=== PATIENT | female | born 1985 | race Caucasian/White ===

== ENCOUNTER 2016-09-12 14:34 | Emergency (ER) | payer MEDICAID ==
[~2016-09-12] VITALS: Ht 165.1 cm; Wt 77.2 kg
[2016-09-12 15:03] LABS: DAU SCREEN DISCLAIMER
[2016-09-12 15:13] LABS: HCG UR OBC PASS
[2016-09-12 15:21] LABS: ASPARTATE AMINO TRANSFERASE 35 U/L (15-37); BLOOD UREA NITROGEN 12 mg/dL (7-18)
[2016-09-12 15:27] LABS: ACETAMINOPHEN < 2 mcg/mL (10-30)
[2016-09-12 17:22] VITALS: BP 91/59
== END 2016-09-12 19:46 | disposition home or self-care (01) ==
LOC: ED 19:40
DX: F32.9 Major depressive disorder, single episode, unspecified (principal); F15.10 Other stimulant abuse, uncomplicated
CPT/HCPCS: 36415; 80053; 80307; 80329; 81001; 81025; 85025; 87086; 99284; G0480

== ENCOUNTER 2016-09-29 21:36 | Emergency (ER) | payer MEDICAID ==
[~2016-09-29] VITALS: Ht 167.6 cm; Wt 80.0 kg
[2016-09-29 21:37] VITALS: BP 131/82
[2016-09-29] MEDS ORDERED: IBUPROFEN 200 MG TABLET ONE (22:08)
[2016-09-29] MEDS ORDERED: IBUPROFEN 200 MG TABLET PO ONE (22:30)
== END 2016-09-29 22:52 | disposition home or self-care (01) ==
LOC: ED 22:38
DX: S60.222A Contusion of left hand, initial encounter (principal); R51 Headache; Y04.8XXA Assault by other bodily force, initial encounter; Y93.89 Activity, other specified; Y99.8 Other external cause status; Y92.009 Unspecified place in unspecified non-institutional (private) residence as the place of occurrence of the external cause
CPT/HCPCS: 70450; 99284

== ENCOUNTER 2016-12-10 23:49 | Emergency (ER) | payer MEDICAID ==
[~2016-12-10] VITALS: Ht 167.6 cm; Wt 79.7 kg
[2016-12-10 23:56] VITALS: BP 124/84
[2016-12-11] MEDS ORDERED: LIDOCAINE 1%, 20ML SQ ONE (01:00)
[2016-12-11] MEDS ORDERED: LIDOCAINE 1%, 20ML ONE (01:11)
== END 2016-12-11 01:39 | disposition home or self-care (01) ==
LOC: ED 23:59
DX: L02.11 Cutaneous abscess of neck (principal); F19.10 Other psychoactive substance abuse, uncomplicated
CPT/HCPCS: 10060; 99283

== ENCOUNTER 2017-01-04 07:38 | Emergency (ER) | payer MEDICAID ==
[~2017-01-04] VITALS: Ht 167.6 cm; Wt 77.6 kg
[2017-01-04 07:40] VITALS: BP 103/69
[2017-01-04] MEDS ORDERED: ONDANSETRON ODT 4 MG PO ONE (08:30)
[2017-01-04] MEDS ORDERED: OXYcodone/APAP 5/325MG TABLET PO ONE (08:30)
[2017-01-04] MEDS ORDERED: ONDANSETRON ODT 4 MG ONE (08:39)
[2017-01-04] MEDS ORDERED: OXYcodone/APAP 5/325MG TABLET ONE (08:39)
== END 2017-01-04 09:59 | disposition left against medical advice (07) ==
LOC: ED 08:49
DX: S40.021A Contusion of right upper arm, initial encounter (principal); S50.11XA Contusion of right forearm, initial encounter; S70.11XA Contusion of right thigh, initial encounter; S80.11XA Contusion of right lower leg, initial encounter; S40.022A Contusion of left upper arm, initial encounter; S50.12XA Contusion of left forearm, initial encounter; S70.12XA Contusion of left thigh, initial encounter; S80.02XA Contusion of left knee, initial encounter; S09.90XA Unspecified injury of head, initial encounter; F43.10 Post-traumatic stress disorder, unspecified; V49.9XXA Car occupant (driver) (passenger) injured in unspecified traffic accident, initial encounter; Y93.89 Activity, other specified; Y92.89 Other specified places as the place of occurrence of the external cause; Y99.8 Other external cause status
CPT/HCPCS: 70450; 72125; 74176; 99284; Q0162

== ENCOUNTER 2017-04-02 02:34 | Emergency (ER) | payer MEDICAID ==
[~2017-04-02] VITALS: Ht 165.1 cm; Wt 83.3 kg
[2017-04-02] MEDS ORDERED: CEPH-368 PO (02:46)
[2017-04-02] MEDS ORDERED: SULF1TAB24 PO (02:46)
[2017-04-02] MEDS ORDERED: SODIUM CHLORIDE FLUSH 10ML SYR IVF ONE (03:00)
[2017-04-02] MEDS ORDERED: LIDOCAINE 1%, 20ML SQ ONE (03:00)
[2017-04-02] MEDS ORDERED: SODIUM CHLORIDE 0.9% 1,000ML IVBOLUS ONE (03:00)
[2017-04-02 03:15] LABS: HEMATOCRIT 43.6 % (34.6-47.8); HEMOGLOBIN 14.6 g/dL (11.7-16.4); WHITE BLOOD COUNT 12.6 x10^3/uL (3.4-10)
[2017-04-02] MEDS: CLINDAMYCIN PMX 900MG/50ML 50 ML IVPB ONE ×2 (03:15→03:30)
[2017-04-02 03:24] LABS: BLOOD UREA NITROGEN 12 mg/dL (7-18)
[2017-04-02] MEDS ORDERED: CLINDAMYCIN PMX 900MG/50ML 50 ML ONE (03:25)
[2017-04-02] MEDS ORDERED: LIDOCAINE 1%, 20ML ONE (03:29)
[2017-04-02] MEDS ORDERED: OMNIPAQUE 350 MG/ML, 100ML BOTTLE ONE (04:19)
[2017-04-02 04:46] VITALS: BP 122/79
== END 2017-04-02 05:38 | disposition home or self-care (01) ==
LOC: ED 02:48
DX: L02.414 Cutaneous abscess of left upper limb (principal); L03.114 Cellulitis of left upper limb; F15.10 Other stimulant abuse, uncomplicated
CPT/HCPCS: 10060; 36415; 73201; 80048; 82040; 83605; 85025; 87040; 96365; 99285; J7030; Q9967

== ENCOUNTER 2017-04-06 01:31 | Emergency (ER) | payer MEDICAID ==
[~2017-04-06] VITALS: Ht 170.2 cm; Wt 84.7 kg
[~2017-04-06 01:31] MED LIST: CEPH-368 PO; SULF1TAB24 PO
[2017-04-06 01:35] VITALS: BP 126/84
== END 2017-04-06 02:10 | disposition home or self-care (01) ==
LOC: ED 02:01
DX: L02.414 Cutaneous abscess of left upper limb (principal); F43.10 Post-traumatic stress disorder, unspecified
CPT/HCPCS: 99283

== ENCOUNTER 2017-04-24 14:03 | Emergency (ER) | payer MEDICAID ==
[~2017-04-24] VITALS: Ht 170.2 cm; Wt 84.2 kg
[2017-04-24 14:13] VITALS: BP 130/84
[2017-04-24] MEDS ORDERED: IBUPROFEN 200 MG TABLET PO ONE (14:30)
[2017-04-24] MEDS ORDERED: IBUPROFEN 200 MG TABLET ONE (14:33)
== END 2017-04-24 15:04 | disposition home or self-care (01) ==
LOC: ED 14:26
DX: L03.012 Cellulitis of left finger (principal)
CPT/HCPCS: 99283

== ENCOUNTER 2018-01-25 14:55 | Emergency (ER) | payer MEDICAID ==
[~2018-01-25] VITALS: Ht 167.6 cm; Wt 75.0 kg
[2018-01-25 15:18] VITALS: BP 118/67
== END 2018-01-25 15:24 | disposition home or self-care (01) ==
LOC: ED 15:18
DX: B35.3 Tinea pedis (principal); F43.10 Post-traumatic stress disorder, unspecified; Z59.0 Homelessness
CPT/HCPCS: 99282

== ENCOUNTER 2018-01-31 13:17 | Emergency (ER) | payer MEDICAID ==
[~2018-01-31] VITALS: Ht 165.1 cm; Wt 83.9 kg
[2018-01-31 13:21] VITALS: BP 121/77
[2018-01-31] MEDS ORDERED: DIPH,PERTUSS(ACELL),TET VAC/PF 0.5 ML IM-VACC ONE (14:00)
== END 2018-01-31 13:42 | disposition home or self-care (01) ==
LOC: ED 13:36
DX: L03.113 Cellulitis of right upper limb (principal); F17.200 Nicotine dependence, unspecified, uncomplicated; Z59.0 Homelessness
CPT/HCPCS: 99283

== ENCOUNTER 2018-07-03 03:42 | Emergency (ER) | payer MEDICAID ==
[~2018-07-03] VITALS: Ht 167.6 cm; Wt 85.0 kg
[2018-07-03 04:03] VITALS: BP 149/84
== END 2018-07-03 04:05 | disposition home or self-care (01) ==
LOC: ED 04:00
DX: L03.115 Cellulitis of right lower limb (principal); L03.317 Cellulitis of buttock; F32.9 Major depressive disorder, single episode, unspecified; F43.10 Post-traumatic stress disorder, unspecified
CPT/HCPCS: 99283

== ENCOUNTER 2019-09-02 01:40 | Emergency (ER) | payer MEDICAID ==
[~2019-09-02] VITALS: Ht 167.6 cm; Wt 88.4 kg
[2019-09-02 01:42] VITALS: BP 140/83
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
--- NOTE | 2019-09-02 03:00 | NUR ---
[employer] AT PT'S BEDSIDE
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
== END 2019-09-02 04:49 | disposition home or self-care (01) ==
LOC: ED 02:41
DX: T76.21XA Adult sexual abuse, suspected, initial encounter (principal); K64.4 Residual hemorrhoidal skin tags; M54.2 Cervicalgia; F15.10 Other stimulant abuse, uncomplicated; F17.210 Nicotine dependence, cigarettes, uncomplicated
CPT/HCPCS: 99282

== ENCOUNTER 2019-10-06 01:18 | Emergency (ER) | payer MEDICAID ==
[~2019-10-06] VITALS: Ht 167.6 cm; Wt 90.0 kg
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
[2019-10-06] MEDS ORDERED: MORPHINE SULFATE 4 MG/ML, 1ML ONE (01:56)
[2019-10-06] MEDS ORDERED: CLINDAMYCIN PMX 600MG/50ML 50 ML ONE (01:56)
[2019-10-06] MEDS ORDERED: MORPHINE SULFATE 4 MG/ML, 1ML IVPush PRN (02:00)
[2019-10-06] MEDS ORDERED: CLINDAMYCIN PMX 600MG/50ML 50 ML IV ONE (02:00)
[2019-10-06] MEDS ORDERED: SODIUM CHLORIDE FLUSH 10ML SYR IVF ONE (02:00)
[2019-10-06 02:03] LABS: BASOPHILS # (AUTO) 0.05 x10^3/uL (0-0.1); BASOPHILS % (AUTO) 1 % (0-1); EOSINOPHILS # (AUTO) 0.08 x10^3/uL (0-0.4); EOSINOPHILS % (AUTO) 1 % (1-7); LYMPHOCYTES # (AUTO) 2.16 x10^3/uL (1-3.4); LYMPHOCYTES % (AUTO) 21 % (22-44); MD NO; MEAN CORPUSCULAR HEMOGLOBIN 29.6 pg (27.0-34.8); MEAN CORPUSCULAR HGB CONC 32.7 g/dL (32.4-35.8); MEAN CORPUSCULAR VOLUME 90.3 fL (80-100); MEAN PLATELET VOLUME 8.7 fL (7.4-10.4); MONOCYTES # (AUTO) 0.66 x10^3/uL (0.2-0.8); MONOCYTES % (AUTO) 7 % (2-9); NEUTROPHILS # (AUTO) 7.23 x10^3/uL (1.8-6.8); NEUTROPHILS % (AUTO) 71 % (42-75); PLATELET COUNT 296 x10^3/uL (130-400); RED BLOOD COUNT 4.13 x10^6/uL (3.82-5.3); RED CELL DISTRIBUTION WIDTH 14.3 % (9.6-15.2)
[2019-10-06 02:12] LABS: ALANINE AMINOTRANSFERASE 40 U/L (12-78); ALBUMIN 3.2 g/dL (3.4-5.0); ANION GAP 7 mmol/L (5-15); CALCIUM 8.5 mg/dL (8.5-10.1); CHLORIDE 105 mmol/L (98-107); CREATININE 0.59 mg/dL (0.55-1.02)
[2019-10-06 02:15] LABS: ALKALINE PHOSPHATASE 115 U/L (45-117); BILIRUBIN,TOTAL 0.3 mg/dL (0.2-1.0)
--- NOTE | 2019-10-06 02:16 | NUR ---
IV STARTED IN R WRIST. LABS OBTAINED. CLINDAMYCIN RUNNING ON IV PUMP. PT DENIES CURRENT NEEDS. AWAITING CT.
--- NOTE | 2019-10-06 02:32 | NUR ---
PT TO CT
[2019-10-06 04:28] VITALS: BP 128/71
[2019-10-06] MEDS ORDERED: HYDROcodone/APAP 5/325 TABLET PO ONE (04:30)
[2019-10-06] MEDS ORDERED: HYDROcodone/APAP 5/325 TABLET ONE (04:31)
== END 2019-10-06 04:45 | disposition home or self-care (01) ==
LOC: ED 01:39
DX: S51.811A Laceration without foreign body of right forearm, initial encounter (principal); S51.812A Laceration without foreign body of left forearm, initial encounter; L03.114 Cellulitis of left upper limb; F17.200 Nicotine dependence, unspecified, uncomplicated; Z91.5 Personal history of self-harm; Y04.0XXA Assault by unarmed brawl or fight, initial encounter; Y93.89 Activity, other specified; Y92.89 Other specified places as the place of occurrence of the external cause; Y99.8 Other external cause status
CPT/HCPCS: 36415; 73201; 80053; 83605; 84145; 85025; 87040; 96365; 96375; 99285; J2270

== ENCOUNTER 2019-11-02 08:59 | Emergency (ER) | payer MEDICAID ==
[~2019-11-02] VITALS: Ht 167.6 cm; Wt 88.0 kg
--- NOTE | 2019-11-02 09:02 | NUR ---
CALLED FOR TRIAGE, NO ANSWER
[2019-11-02 09:05] VITALS: BP 117/69
[2019-11-02] MEDS ORDERED: CEFTRIAXONE 250 MG IM ONE (10:00)
[2019-11-02] MEDS ORDERED: AZITHROMYCIN 500 MG TABLET PO ONE (10:00)
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
--- NOTE | 2019-11-02 10:04 | NUR ---
MANDO SOSA AT BEDSIDE FOR PELVIC EXAM, PULLER THROUGHRIGOBERTO Madrigal AT BEDSIDE TO ASSIST/CHAPARONE EXAM.
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
[2019-11-02 10:09] LABS: BASOPHILS # (AUTO) 0.06 x10^3/uL (0-0.1); BASOPHILS % (AUTO) 1 % (0-1); EOSINOPHILS # (AUTO) 0.06 x10^3/uL (0-0.4); EOSINOPHILS % (AUTO) 1 % (1-7); LYMPHOCYTES # (AUTO) 2.16 x10^3/uL (1-3.4); LYMPHOCYTES % (AUTO) 35 % (22-44); MD NO; MEAN CORPUSCULAR HEMOGLOBIN 29.1 pg (27.0-34.8); MEAN CORPUSCULAR HGB CONC 32.5 g/dL (32.4-35.8); MEAN CORPUSCULAR VOLUME 89.6 fL (80-100); MEAN PLATELET VOLUME 8.5 fL (7.4-10.4); MONOCYTES # (AUTO) 0.45 x10^3/uL (0.2-0.8); MONOCYTES % (AUTO) 7 % (2-9); NEUTROPHILS # (AUTO) 3.48 x10^3/uL (1.8-6.8); NEUTROPHILS % (AUTO) 56 % (42-75); PLATELET COUNT 328 x10^3/uL (130-400); RED BLOOD COUNT 4.34 x10^6/uL (3.82-5.3); RED CELL DISTRIBUTION WIDTH 14.2 % (9.6-15.2)
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
[2019-11-02 10:18] LABS: ALBUMIN 3.7 g/dL (3.4-5.0); ANION GAP 4 mmol/L (5-15); CALCIUM 9.2 mg/dL (8.5-10.1); CHLORIDE 107 mmol/L (98-107); CREATININE 0.51 mg/dL (0.55-1.02)
[2019-11-02] MEDS ORDERED: AZITHROMYCIN 500 MG TABLET ONE (10:23)
[2019-11-02] MEDS ORDERED: CEFTRIAXONE 250 MG ONE (10:23)
[2019-11-02] MEDS ORDERED: LIDOCAINE-MPF 1%, 2ML ONE (10:23)
[2019-11-02 10:38] LABS: CLUE CELLS NONE SEEN (NONE SEEN); WET PREP WBCS NONE SEEN (FEW)
[2019-11-02 10:57] LABS: MICROSCOPIC NOT IND
== END 2019-11-02 11:30 | disposition home or self-care (01) ==
LOC: ED 09:14
DX: N89.8 Other specified noninflammatory disorders of vagina (principal); R10.2 Pelvic and perineal pain; R19.7 Diarrhea, unspecified
CPT/HCPCS: 36415; 80048; 81003; 82040; 85025; 87210; 87491; 87591; 87808; 96372; 99284; J0696

== ENCOUNTER 2020-10-21 11:19 | Emergency (ER) | payer MEDICAID ==
[~2020-10-21] VITALS: Ht 167.6 cm; Wt 88.9 kg
[~2020-10-21 11:19] MED LIST changes: +SULF-23 PO; -SULF1TAB24 PO
[2020-10-21 11:45] VITALS: BP 137/80
[2020-10-21 12:25] LABS: BASOPHILS % (AUTO) 1 % (0-1); EOSINOPHILS % (AUTO) 1 % (1-7); LYMPHOCYTES % (AUTO) 32 % (22-44); MEAN CORPUSCULAR HEMOGLOBIN 30.9 pg (27.0-34.8); MEAN CORPUSCULAR HGB CONC 33.9 g/dL (32.4-35.8); MEAN PLATELET VOLUME 8.1 fL (7.4-10.4); MONOCYTES % (AUTO) 8 % (2-9); NEUTROPHILS % (AUTO) 58 % (42-75); PLATELET COUNT 316 x10^3/uL (130-400); RED BLOOD COUNT 4.48 x10^6/uL (3.82-5.3); RED CELL DISTRIBUTION WIDTH 13.1 % (9.6-15.2)
[2020-10-21 12:27] LABS: MICROSCOPIC NOT IND
[2020-10-21 12:34] LABS: ANION GAP 9 mmol/L (5-15); CALCIUM 9.5 mg/dL (8.5-10.1); CHLORIDE 107 mmol/L (98-107)
[2020-10-21 12:42] LABS: ALANINE AMINOTRANSFERASE 41 U/L (12-78); ALKALINE PHOSPHATASE 98 U/L (45-117); BILIRUBIN,TOTAL 0.6 mg/dL (0.2-1.0); TOTAL PROTEIN 7.8 g/dL (6.4-8.2)
--- NOTE | 2020-10-21 13:14 | NUR ---
prestressed concrete laborer: attempted to move pt from lobby to room, no answer in lobby
--- NOTE | 2020-10-21 14:29 | NUR ---
barrel raiser helper: attempted to move pt from lobby to room. no answer in lobby
--- NOTE | 2020-10-21 15:17 | NUR ---
engraver signature: attempted to move pt from lobby to room, no answer in lobby
== END 2020-10-21 15:20 | disposition left against medical advice (07) ==
LOC: ED 12:00
DX: N89.8 Other specified noninflammatory disorders of vagina (principal); R11.0 Nausea
CPT/HCPCS: 36415; 80053; 81003; 84703; 85025; 99283